=== PATIENT | female | born 1980 | race American Indian/Alaskan Native ===

== ENCOUNTER 2019-06-17 17:59 | Emergency (ER) | payer SELFPAY ==
[2019-06-17 18:07] VITALS: BP 124/77
--- NOTE | 2019-06-17 18:35 | Event Note ---
ED Screening Note Date of service: 06/17/19 Time: 18:33 ED Screening Note: Pt complains of left ankle pain after twisting injury x today This initial assessment/diagnostic orders/clinical plan/treatment(s) is/are subject to change based on patients health status, clinical progression and re-assessment by fellow clinical providers in the ED. Further treatment and workup at subsequent clinical providers discretion. Patient/guardian urged not to elope from the ED as their condition may be serious if not clinically assessed and managed. Initial orders include: xr
--- NOTE | 2019-06-17 20:04 | XRay Report ---
LEFT ANKLE 3 VIEW(S) INDICATION / CLINICAL INFORMATION: pain after twisting injury x today. COMPARISON: None available. FINDINGS: BONES / JOINT(S): No acute fracture or subluxation. No significant arthritis. SOFT TISSUES: No significant abnormality. Signer Name: Matt Ch MD Signed: 06/17/2019 7:59 PM Workstation Name: [id number]
[2019-06-17] MEDS ORDERED: ACETAMINOPHEN 500 MG TAB PO ONE (23:34)
[2019-06-17] MEDS ORDERED: IBUPROFEN 600 MG TAB PO ONE (23:34)
--- NOTE | 2019-06-17 23:44 | Emergency Department Report ---
ED Lower Extremity HPI - General Chief Complaint: Extremity Injury, Lower Stated Complaint: (R0 FOOT PAIN Time Seen by Provider: 06/17/19 18:33 Source: patient Mode of arrival: Ambulatory Limitations: No Limitations - History of Present Illness Initial Comments: Patient is a 39-year-old -[place] female who presented to the ED with onset of acute onset persistent severe left ankle pain after she accidentally twisted her left ankle while walking about 8 hours ago. Patient denies fall, traumatic injury, numbness and tingling or weakness of left leg, dizziness, chest pain or shortness of breath. MD Complaint: ankle injury (left ankle pain, twisted) -: Sudden, hour(s) (8) Injury: Ankle: Left (Pain and swelling) Type of Injury: inversion, eversion Place: work Severity: severe Severity scale (0 -10): 8 Improves With: nothing Worsens With: weight bearing, movement, palpation Context: other (twisted left ankle and foot) Associated Symptoms: snap/pop sensation, swelling, able to partially bear weight, ambulatory. denies: numbness, tingling, unable to bear weight, other - Related Data Previous Rx's Medication Instructions Recorded Last Taken Type Ibuprofen [Motrin] 800 mg PO Q8HR PRN #24 tablet 06/17/19 Unknown Rx tiZANidine [Zanaflex 4mg TAB] 4 mg PO Q8H PRN #15 tablet 06/17/19 Unknown Rx traMADoL [Ultram] 50 mg PO Q6HR PRN #12 tablet 06/17/19 Unknown Rx Allergies Allergy/AdvReac Type Severity Reaction Status Date / Time No Known Allergies Allergy Verified 06/09/16 12:36 ED Review of Systems ROS: Stated complaint: (R0 FOOT PAIN Other details as noted in HPI Constitutional: denies: chills, fever Eyes: denies: eye pain, eye discharge, vision change ENT: denies: ear pain, throat pain Respiratory: denies: cough, shortness of breath, wheezing Cardiovascular: denies: chest pain, palpitations Endocrine: no symptoms reported Gastrointestinal: denies: abdominal pain, nausea, diarrhea Genitourinary: denies: urgency, dysuria, discharge Musculoskeletal: joint swelling (left ankle swelling), arthralgia (left ankle pain). denies: back pain Skin: denies: rash, lesions Neurological: denies: headache, weakness, paresthesias Psychiatric: denies: anxiety, depression Hematological/Lymphatic: denies: easy bleeding, easy bruising ED Past Medical Hx - Past Medical History Previous Medical History?: No - Surgical History Past Surgical History?: No - Social History Smoking Status: Never Smoker Substance Use Type: Alcohol - Medications Home Medications: Home Medications Medication Instructions Recorded Confirmed Last Taken Type Ibuprofen [Motrin] 800 mg PO Q8HR PRN #24 tablet 06/17/19 Unknown Rx tiZANidine [Zanaflex 4mg TAB] 4 mg PO Q8H PRN #15 tablet 06/17/19 Unknown Rx traMADoL [Ultram] 50 mg PO Q6HR PRN #12 tablet 06/17/19 Unknown Rx ED Physical Exam - General Limitations: No Limitations General appearance: alert, in no apparent distress - Head Head exam: Present: atraumatic, normocephalic, normal inspection - Eye Eye exam: Present: normal appearance, PERRL, EOMI Pupils: Present: normal accommodation - ENT ENT exam: Present: normal exam, normal orophraynx, mucous membranes moist, TM's normal bilaterally - Neck Neck exam: Present: normal inspection, full ROM - Respiratory Respiratory exam: Present: normal lung sounds bilaterally. Absent: respiratory distress, wheezes, rales, rhonchi, chest wall tenderness, accessory muscle use, decreased breath sounds, prolonged expiratory - Cardiovascular Cardiovascular Exam: Present: regular rate, normal rhythm, normal heart sounds. Absent: systolic murmur, diastolic murmur, rubs, gallop - GI/Abdominal GI/Abdominal exam: Present: soft, normal bowel sounds. Absent: tenderness, guarding, rebound, hyperactive bowel sounds, hypoactive bowel sounds, organomegaly - Extremities Exam Extremities exam: Present: normal inspection, tenderness (palpable left ankle tenderness with mild swelling and limited range of motion due to pain), normal capillary refill, joint swelling (mild left ankle swelling). Absent: full ROM (Limited range of motion due to pain), pedal edema, calf tenderness - Back Exam Back exam: Present: normal inspection, full ROM. Absent: tenderness, CVA tenderness (R), muscle spasm, paraspinal tenderness, vertebral tenderness - Neurological Exam Neurological exam: Present: alert, oriented X3, CN II-XII intact, normal gait, reflexes normal - Psychiatric Psychiatric exam: Present: normal affect, normal mood - Skin Skin exam: Present: warm, dry, intact, normal color. Absent: rash ED Course Vital Signs 06/17/19 18:01 Temperature 97.6 F Pulse Rate 69 Respiratory 18 Rate Blood Pressure 124/77 O2 Sat by Pulse 100 Oximetry ED Lower Extremity MDM - Radiology Data Radiology results: report reviewed, image reviewed Left ankle x-ray shows no acute fractures or subluxations. - Medical Decision Making This is a 39-year-old female who presented to the ED with acute onset persistent severe left ankle pain and mild swelling after she twisted the left ankle flight hours ago. In the ED, patient is alert and oriented 3 and is not in dis tress. Patient was treated for pain and left ankle x-ray shows no acute fractures or subluxations. The left ankle was splinted with Jerod wrap of the patient discharged home on pain medications and muscle relaxants and was advised to follow-up with her primary care physician in 7-10 days for reevaluation or return to the ED immediately if symptoms get worse. - Differential Diagnosis ankle fracture; ankle sprain; ankle muscle strain Critical care attestation.: If time is entered above; I have spent that time in minutes in the direct care of this critically ill patient, excluding procedure time. ED Disposition Clinical Impression: Severe sprain of left ankle Qualifiers: Encounter type: initial encounter Qualified Code(s): S93.402A - Sprain of unspecified ligament of left ankle, initial encounter Muscle strain of left ankle Qualifiers: Encounter type: initial encounter Qualified Code(s): S96.912A - Strain of unspecified muscle and tendon at ankle and foot level, left foot, initial encounter Disposition: TO HOME OR SELFCARE Is pt being admited?: No Does the pt Need Aspirin: No Condition: Stable Instructions: Muscle Strain (ED), Ankle Sprain (ED), Ankle Exercises (GEN) Additional Instructions: Take medications with food, drink plenty of fluids and follow-up with your primary care physician in 7-10 days for reevaluation. Return to the ED immediately if symptoms get worse. Prescriptions: Ibuprofen [Motrin] 800 mg PO Q8HR PRN #24 tablet PRN Reason: Pain , Severe (7-10) traMADoL [Ultram] 50 mg PO Q6HR PRN #12 tablet PRN Reason: Pain tiZANidine [Zanaflex 4mg TAB] 4 mg PO Q8H PRN #15 tablet PRN Reason: Muscle Spasm Referrals: MINERVA GARCIA MD [Primary Care Provider] - 3-5 Days Time of Disposition: 23:42 Print Language: ALBAN[place]
== END 2019-06-18 00:07 | disposition home or self-care (01) ==
LOC: ED 17:59
DX: S96.912A Strain of unspecified muscle and tendon at ankle and foot level, left foot, initial encounter (principal); S93.402A Sprain of unspecified ligament of left ankle, initial encounter; F10.10 Alcohol abuse, uncomplicated; Z79.899 Other long term (current) drug therapy; X50.0XXA Overexertion from strenuous movement or load, initial encounter; Y93.01 Activity, walking, marching and hiking; Y92.89 Other specified places as the place of occurrence of the external cause; Y99.8 Other external cause status